=== PATIENT | female | born 2000 | race Asian ===

== ENCOUNTER 2021-08-02 14:23 | Outpatient (CLI) | payer OTHER ==
--- NOTE | 2021-08-03 04:04 | Ultrasound Report ---
PROCEDURE: OB Detailed Eval INDICATIONS: SUPERVISION OF OUTSIDE/PRIOR DATING DATA: Last menstrual period (LMP): 02/12/2021. LMP-based estimated date of delivery (SUHAS): 11/19/2021. First dating scan (date and location): 05/10/2021. Estimated date of delivery (SUHAS) from first dating scan: 12/11/2021. The below data below was generated using the ultrasound SUHAS of 12/11/2021 TECHNIQUE: Real-time scanning was performed of the fetus, with image documentation and biometric measurements. Endovaginal scanning: Was not performed COMPARISON: None. FINDINGS: General: A single living intrauterine gestation is present. Presentation: Variable Placenta: Placental position is posterior, without previa. Amniotic fluid index: 11.5 cm, normal for gestational age. Largest pocket 4.5 cm. heart rate: 171 beats per minute. Maternal cervical canal: 3.5 cm long; normal length is 2.5 cm or more. biometrics: Biparietal diameter: 5 cm Head circumference: 18.5 cm Abdominal circumference: 16.1 cm Femur length: 3.6 cm Estimated gestational age from initial scan: 21 weeks 2 days Composite gestational age from present scan: 21 weeks 1 day Estimated weight and percentile: 406 g, 40th percentile Measurement variability in biometric dating: +/- 10 days from 12-20 weeks gestation, +/- 2 weeks from 20-30 weeks gestation, +/- 3 weeks at 30 weeks gestation or later. Anatomic survey: Neuro: Ventricles are normal at less than 10 mm. Cisterna magna is normal at 3-11 mm. Cerebellum i s normal in size and morphology. Nuchal skin fold: Normal at less than 6 mm between 14 and 20 weeks gestational age. Face: Nose and lips, facial profile are normal. Spine: No evidence for spina bifida. Heart: 4-chambered heart is present, with normal ventricular outflow tracts. Diaphragm: Diaphragm is intact. Stomach: Left-sided stomach is present. Kidneys: No hydronephrosis. Normal is less than 5 mm in 2nd trimester, less than 7 mm in 3rd trimester. Cord: 3 vessel cord has orthotopic insertion. Bladder: Normal in size. Extremities: All 4 extremities are visualized. IMPRESSION: Single live intrauterine gestation with normal EMELIA, size concordant with dates, normal survey. Reviewed by: Bin Lopez MD on 08/03/2021 4:03 AM PDT Approved by: Bin Lopez MD on 08/03/2021 4:03 AM PDT Station ID: [id number]
== END 2021-08-02 14:24 | disposition home or self-care (01) ==
LOC: DI 14:23
PROVIDERS: ATTEND Family Medicine
DX: Z34.92 Encounter for supervision of normal pregnancy, unspecified, second trimester (principal); Z3A.20 20 weeks gestation of pregnancy